=== PATIENT | female | born 1975 | race Caucasian/White ===

== ENCOUNTER → 2019-01-14 | Outpatient (REF) | LOC: ZLAB.WCH 16:01 | PROVIDERS: Physician Assistant | DX: Z01.89 Encounter for other specified special examinations (principal) ==

== ENCOUNTER → 2019-02-21 | Outpatient (CLI) | payer OTHER | LOC: COL.RAD 08:49 | DX: R10.12 Left upper quadrant pain (principal); R10.32 Left lower quadrant pain | CPT/HCPCS: Q9967 ==

== ENCOUNTER 2022-01-23 14:35 | Day surgery (SDC) | payer OTHER ==
[2022-01-23] VITALS (8 sets, daily range): BP systolic 117–135; BP diastolic 70–81; PULSE 67–81; TEMP 98.1–99.1
[2022-01-23] MEDS ORDERED: EFFEXOR XR75 MG/CAP PO (15:04)
[2022-01-23] MEDS ORDERED: CLARITIN 1010 MG/TAB PO (15:05)
--- NOTE | 2022-01-23 16:18 | NUR ---
Pt off the floor for surgery.
[2022-01-23] MEDS ORDERED: PYRIDIUM 100MG100 MG PO (16:54)
[2022-01-23] MEDS ORDERED: NORCO 325 MG-51 TAB PO (16:55)
--- NOTE | 2022-01-23 17:38 | NUR ---
Pt just arrived to the floor from [facility]. She is awake, alert and oriented although drowsy. VSS. Assisted pt to the restroom, standby assist. PT did void. Educated pt on discharge criteria. Call light within reach, will continue to monitor
--- NOTE | 2022-01-23 18:44 | NUR ---
Report given, Pt has tolerated crackers, jello and applesauce. Reported that she is having some pain to her left side, but that it isn't too bad. Pt is wanting to go home, report given to nights
--- NOTE | 2022-01-23 20:51 | NUR ---
RECEIVED REPORT FROM DAY SHIFT. PATIENT HERE FOR CYSTO. PATIENT RESTING IN BED APPROXIMATELY 90 MINUTES ON FLOOR. VSS. PATIENT IV DC'D. PATIENT GIVEN DISCHARGE INSTRUCTIONS. PATIENT DENIED ANY QUESTIONS OR CONCERNS. PATIENT ESCORTED OUT VIA WHEELCHAIR.
== END 2022-01-23 20:11 | disposition home or self-care (01) ==
LOC: SURG 14:35 → SDCO 14:35 → SURG 14:55 → SDCO 20:11
DX: N13.2 Hydronephrosis with renal and ureteral calculous obstruction (principal); J45.998 Other asthma
CPT/HCPCS: OP; C1769; C2617; J7120; Q9967

== ENCOUNTER → 2022-01-23 | Day surgery (SDC) | payer OTHER ==
[~2022-01-23] MED LIST: CLARITIN 1010 MG/TAB PO; EFFEXOR XR75 MG/CAP PO; NORCO 325 MG-51 TAB PO; PYRIDIUM 100MG100 MG PO
== END ==
LOC: SDCO 14:31
DX: Z53.8 Procedure and treatment not carried out for other reasons (principal)
CPT/HCPCS: J1100; J2405; J2704; J3010